=== PATIENT | female | born 1955 | race Caucasian/White ===

== ENCOUNTER 2021-08-27 04:19 | Emergency (ER) | payer MEDICARE, OTHER ==
[2021-08-27] MEDS ORDERED: Diazepam 2 MG Tab PO ONE (05:09)
[2021-08-27] MEDS ORDERED: Ibuprofen 600 MG Tab PO ONE (05:09)
[2021-08-27 06:00] LABS: CARBON DIOXIDE,CO2 24.7 mmol/L (21.0-32.0); POTASSIUM,K 3.9 mmol/L (3.5-5.1)
[2021-08-27] MEDS ORDERED: Magnesium Oxide 400 MG Tab PO ONE (06:14)
== END 2021-08-27 06:25 | disposition home or self-care (01) ==
LOC: MW.ED 04:19
DX: R25.2 Cramp and spasm (principal); E83.42 Hypomagnesemia
CPT/HCPCS: 36415; 80048; 83735; 85025; 99283; A9270